=== PATIENT | female | born 1990 | race Caucasian/White ===

== ENCOUNTER 2019-01-20 14:57 | Emergency (ER) | payer OTHER ==
[~2019-01-20] VITALS: Ht 157.5 cm; Wt 73.9 kg
[2019-01-20 16:28] VITALS: BP 123/76
[2019-01-20] MEDS ORDERED: MOBIC7.5 MG PO (16:39)
== END 2019-01-20 16:54 | disposition home or self-care (01) ==
LOC: ER 14:57
DX: S93.492A Sprain of other ligament of left ankle, initial encounter (principal); Z87.891 Personal history of nicotine dependence; W01.0XXA Fall on same level from slipping, tripping and stumbling without subsequent striking against object, initial encounter; Y93.89 Activity, other specified; Y92.89 Other specified places as the place of occurrence of the external cause; Y99.8 Other external cause status